=== PATIENT | male | born 1930 | race Caucasian/White ===

== ENCOUNTER 2017-01-19 19:17 | Inpatient (IN) | payer MEDICARE, MEDICAID ==
[~2017-01-19] VITALS: Ht 175.3 cm; Wt 74.0 kg
[2017-01-19 19:35] VITALS: BP 163/115; PULSE 75; RESP 18; TEMP 97.5; O2SAT 97
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
--- NOTE | 2017-01-19 20:02 | RADRPT ---
EXAM DATE/TIME: 01/19/2017 19:54 [facility] COMPARISON: No previous studies available for comparison. INDICATIONS : Short of breath altered mental status MEDICAL HISTORY : None. SURGICAL HISTORY : Pacemaker. ENCOUNTER: Initial ACUITY: 1 day PAIN SCORE: 0/10 LOCATION: Bilateral chest FINDINGS: Cardiomegaly. Clear lungs. Pacer/ICD device from a left subclavian transvenous approach noted. Degene rative changes of the spine. CONCLUSION: No acute disease. Luis Angel Acuña MD on January 19, 2017 at 20:00 Board Certified Radiologist. This report was verified electronically.
[2017-01-19 20:27] LABS: ANION GAP 6 MEQ/L (5-15)
[2017-01-19 20:29] LABS: APTT (PATIENT) 44.1 SEC (24.3-30.1); INTERNATIONAL NORMALIZED RATIO 2.8 RATIO; PROTHROMBIN TIME - PATIENT 32.8 SEC (9.8-11.6)
[2017-01-19 20:29] LABS: AUTOMATED NEUTROPHIL # 4.3 TH/MM3 (1.8-7.7); BASOPHIL # 0.1 TH/MM3 (0-0.2); BASOPHIL % 0.7 % (0.0-2.0); EOSINOPHIL # 0.5 TH/MM3 (0-0.4); EOSINOPHIL % 6.5 % (0.0-4.0); HEMATOCRIT 39.4 % (39.0-51.0); HEMO FLAGS DIFF FINAL; LYMPH % 30.8 % (9.0-44.0); LYMPHOCYTE # 2.4 TH/MM3 (1.0-4.8); MEAN CELL VOLUME 85.3 FL (80.0-100.0); MEAN CORPUSCULAR HEMOGLOBIN 28.2 PG (27.0-34.0); MEAN CORPUSCULAR HGB CONC 33.1 % (32.0-36.0); PLATELET COUNT 135 TH/MM3 (150-450); RED BLOOD COUNT 4.61 MIL/MM3 (4.50-5.90); WHITE BLOOD COUNT 7.7 TH/MM3 (4.0-11.0)
[2017-01-19 20:31] LABS: ALKALINE PHOSPHATASE 143 U/L (45-117); ALT (GPT) 29 U/L (12-78); AST (GOT) 27 U/L (15-37); BICARBONATE 28.1 MEQ/L (21.0-32.0); BLOOD UREA NITROGEN 22 MG/DL (7-18); CHLORIDE 106 MEQ/L (98-107); GLOMERULAR FILTRATION RATE 48 ML/MIN (>89); POTASSIUM 4.4 MEQ/L (3.5-5.1); SODIUM (NA) 140 MEQ/L (136-145); TOTAL BILIRUBIN ADULT 0.3 MG/DL (0.2-1.0)
--- NOTE | 2017-01-19 20:42 | RADRPT ---
EXAM DATE/TIME: 01/19/2017 20:33 [facility] COMPARISON: No previous studies available for comparison. INDICATIONS : Altered mental status. RADIATION DOSE: 39.32 CTDIvol (mGy) MEDICAL HISTORY : Dementia. SURGICAL HISTORY : None. ENCOUNTER: Initial ACUITY: 1 day PAIN SCALE: 0/10 LOCATION: cranial TECHNIQUE: Multiple contiguous axial images were obtained of the head. Using automated exposure control and adj ustment of the mA and/or kV according to patient size, radiation dose was kept as low as reasonably a chievable to obtain optimal diagnostic quality images. FINDINGS: There is atrophy and artery periventricular white matter disease most characteristic of chronic micro vascular ischemic disease. Remote right cerebellar PICA territory infarcts. No signs of acute infarct , hemorrhage, or mass. No fractures. CONCLUSION: No acute disease. Luis Angel Acuña MD on January 19, 2017 at 20:40 Board Certified Radiologist. This report was verified electronically.
[2017-01-19] MEDS ORDERED: VENL75TA PO (21:47)
[2017-01-19] MEDS ORDERED: LISI2.5T3 PO (21:47)
[2017-01-19] MEDS ORDERED: FERR325T PO (21:47)
[2017-01-19] MEDS ORDERED: POTA10LI10 PO (21:47)
[2017-01-19] MEDS ORDERED: ARTI1SOL OP (21:47)
[2017-01-19] MEDS ORDERED: WARF-23 PO (21:47)
[2017-01-19] MEDS ORDERED: AFRI0.052 EACH NARE (21:47)
[2017-01-19] MEDS ORDERED: ALPR0.5T3 PO (21:47)
[2017-01-19] MEDS ORDERED: SENN8.6T81 PO (21:47)
[2017-01-19] MEDS ORDERED: ACET325T PO (21:47)
[2017-01-19] MEDS ORDERED: DONE10TA7 PO (21:47)
[2017-01-19 23:05] VITALS: BP 139/66; PULSE 71; RESP 12; O2SAT 97
[2017-01-19] MEDS ORDERED: cloNIDine HCL 0.1 MG TAB PO PRN (23:15)
[2017-01-19] MEDS ORDERED: ALUMINUM/MAGNESIUM/SIMETH 30 ML CUP PO PRN (23:15)
[2017-01-19] MEDS ORDERED: MELATONIN 5 MG TAB PO PRN (23:15)
[2017-01-19] MEDS ORDERED: diphenhydrAMINE HCL 50 MG/ML VIAL IM PRN (23:15)
[2017-01-19] MEDS ORDERED: MAGNESIUM HYDROXIDE SUSP 30 ML CUP PO PRN (23:15)
[2017-01-19] MEDS ORDERED: HALOPERIDOL 1 MG TAB PO PRN (23:15)
[2017-01-19] MEDS ORDERED: ACETAMINOPHEN 325 MG TAB PO PRN (23:15)
[2017-01-19] MEDS ORDERED: diphenhydrAMINE HCL 25 MG CAP PO PRN (23:15)
[2017-01-19] MEDS ORDERED: HALOPERIDOL LACTATE 5 MG/ML AMP IM PRN (23:15)
[2017-01-20 00:20] VITALS: BP 144/79; PULSE 71; RESP 16; TEMP 97.9; O2SAT 95
[2017-01-20 05:56] VITALS: BP 148/70; PULSE 75; RESP 16; TEMP 98.4
--- NOTE | 2017-01-20 08:41 | EKG ---
Date Performed: 01/19/2017 Time Performed: 23:28:19 PTAGE: 86 years EKG: ELECTRONIC VENTRICULAR PACEMAKER ABNORMAL RHYTHM ECG NO PREVIOUS TRACING DOCTOR: Stuart Langford Interpretating Date/Time 01/20/2017 08:39:32
[2017-01-20] MEDS: FERROUS SULFATE 325 MG (65 MG ELEMENTAL IRON) TAB PO SCH (09:00)
[2017-01-20] MEDS: ARTIFICIAL TEARS OPTH SOLN 15 ML BTL EACH EYE SCH ×2 (09:00→21:00)
[2017-01-20] MEDS: POTASSIUM CHLORIDE 10 MEQ CONTROLLED RELEASE TAB PO SCH (09:00)
[2017-01-20] MEDS: REMOVE OLD PATCH-NICOTINE T-DERMAL SCH (09:00)
[2017-01-20] MEDS: NICOTINE 21 MG/24 HR PATCH T-DERMAL SCH (09:00)
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
[2017-01-20] MEDS: WARFARIN SOD 2 MG TAB PO SCH (16:00)
[2017-01-20] MEDS: WARFARIN SOD 2.5 MG TAB PO SCH (16:00)
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
[2017-01-20] MEDS ORDERED: PILL SPLITTER OTHER PRN (17:15)
[2017-01-20 18:00] VITALS: BP 154/71; PULSE 66; RESP 18; O2SAT 94
[2017-01-20] MEDS: SENNOSIDES 8.6 MG TAB PO SCH (21:11)
[2017-01-20] MEDS: QUEtiapine FUMARATE 25 MG TAB PO SCH (21:12)
[2017-01-20] MEDS: DONEPEZIL HCL 5 MG TAB PO SCH (21:12)
[2017-01-21 05:24] VITALS: BP 196/97; PULSE 72; RESP 18; TEMP 97.5; O2SAT 96
[2017-01-21] MEDS: NICOTINE 21 MG/24 HR PATCH T-DERMAL SCH (09:00)
[2017-01-21] MEDS: ARTIFICIAL TEARS OPTH SOLN 15 ML BTL EACH EYE SCH ×2 (09:00→20:35)
[2017-01-21] MEDS: REMOVE OLD PATCH-NICOTINE T-DERMAL SCH (09:00)
--- NOTE | 2017-01-21 09:20 | HHI.PYPN ---
Subjective Remarks Patient seen and examined with nurse. Chart reviewed. Case discussed with nursing staff who reports that the patient has been in good behavioral control but requires assistance with feeding. On my evaluation today, the patient is in good spirits. However he says that he feels "disgusted with myself. I been in the middle of everything, and all of a sudden I'm all the way out here." It is unclear what he means by this, and it is impossible to again clarification in light of his degree of cognitive impairment, which is ongoing. No SI or HI. No evident side effects from medications. Review of Systems ROS Limitations: Poor Historian Except as stated in HPI: all other systems reviewed are Neg Objective Alert: Yes [place]: Person Mood: Calm Affect: Appropriate Memory Intact: Comment (impaired) Hallucinations: Other (no AVH) Delusions: No Delusion Type: Other (no delusions) Suicidal: Ideation (no SI) Homicidal: Ideation (no HI) Insight/Judgment Poor Remarks No abnormal motor movements noted. Labs Labs reviewed. No new labs. Vitals/IOs Vital Signs Date Time Temp Pulse Resp B/P Pulse Ox O2 Delivery O2 Flow Rate FiO2 01/21/17 05:24 97.5 72 18 196/97 96 01/19/17 19:35 Room Air Intake and Output 01/20/17 01/20/17 01/21/17 08:00 16:00 00:00 Intake Total 960 ml 720 ml Balance 960 ml 720 ml Assessment & Plan Problem List: (1) Dementia ICD Code: F03.90 Assessment & Plan Continue low-dose Seroquel as ordered. Continue other medications and care as ordered. Hospitalist consult input noted and appreciated. Continue to monitor on the inpatient unit. Justification for Cont. Inpt. Impairment in reality construction as a consequence of his dementia. High risk for decompensation in a less restrictive environment. Discharge Planning Possible return to referring facility versus new placement. 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
[2017-01-21] MEDS: FERROUS SULFATE 325 MG (65 MG ELEMENTAL IRON) TAB PO SCH (09:28)
[2017-01-21] MEDS: VENLAFAXINE HCL XR 75 MG CAP PO SCH (09:28)
[2017-01-21] MEDS: POTASSIUM CHLORIDE 10 MEQ CONTROLLED RELEASE TAB PO SCH (09:28)
[2017-01-21] MEDS: QUEtiapine FUMARATE 25 MG TAB PO SCH ×2 (09:30→20:36)
[2017-01-21] MEDS: WARFARIN SOD 2 MG TAB PO SCH (15:58)
[2017-01-21] MEDS: WARFARIN SOD 2.5 MG TAB PO SCH (15:58)
[2017-01-21 16:30] LABS: APTT (PATIENT) 37.2 SEC (24.3-30.1); INTERNATIONAL NORMALIZED RATIO 1.8 RATIO; PROTHROMBIN TIME - PATIENT 20.8 SEC (9.8-11.6)
[2017-01-21 16:36] LABS: ANION GAP 7 MEQ/L (5-15); AST (GOT) 32 U/L (15-37); BICARBONATE 21.4 MEQ/L (21.0-32.0); BLOOD UREA NITROGEN 24 MG/DL (7-18); CHLORIDE 110 MEQ/L (98-107); GLOMERULAR FILTRATION RATE 44 ML/MIN (>89); POTASSIUM 5.1 MEQ/L (3.5-5.1); SODIUM (NA) 138 MEQ/L (136-145)
[2017-01-21 16:45] LABS: ALKALINE PHOSPHATASE 139 U/L (45-117); ALT (GPT) 29 U/L (12-78); HDL CHOLESTEROL 46.5 MG/DL (40.0-60.0); LDL CHOLESTEROL 94 MG/DL (0-99); TOTAL BILIRUBIN ADULT 0.4 MG/DL (0.2-1.0)
[2017-01-21 18:00] VITALS: BP 109/56; PULSE 71; RESP 16; TEMP 98.1; O2SAT 98
[2017-01-21] MEDS: SENNOSIDES 8.6 MG TAB PO SCH (20:35)
[2017-01-21] MEDS: DONEPEZIL HCL 5 MG TAB PO SCH (20:36)
[2017-01-21 22:25] LABS: HEMOGLOBIN A1a 1.1 %; HEMOGLOBIN Ao 84.7 %; HEMOGLOBIN LA1C 2.3 %; HEMOGLOBIN P3 5.3 %
[2017-01-22 06:20] VITALS: BP 160/78; PULSE 69; RESP 18; TEMP 96.3; O2SAT 100
[2017-01-22] MEDS: VENLAFAXINE HCL XR 75 MG CAP PO SCH (08:50)
[2017-01-22] MEDS: FERROUS SULFATE 325 MG (65 MG ELEMENTAL IRON) TAB PO SCH (08:50)
[2017-01-22] MEDS: POTASSIUM CHLORIDE 10 MEQ CONTROLLED RELEASE TAB PO SCH (08:51)
[2017-01-22] MEDS: QUEtiapine FUMARATE 25 MG TAB PO SCH ×2 (08:52→20:58)
[2017-01-22] MEDS: NICOTINE 21 MG/24 HR PATCH T-DERMAL SCH (08:52)
[2017-01-22 08:55] VITALS: BP 160/82; PULSE 66; RESP 16
[2017-01-22] MEDS: ARTIFICIAL TEARS OPTH SOLN 15 ML BTL EACH EYE SCH ×2 (08:57→20:59)
[2017-01-22] MEDS: REMOVE OLD PATCH-NICOTINE T-DERMAL SCH (08:58)
[2017-01-22 09:13] LABS: BICARBONATE 26.9 MEQ/L (21.0-32.0); POTASSIUM 4.3 MEQ/L (3.5-5.1)
[2017-01-22 09:53] LABS: CALCIUM-PROTEIN CORRECTED 11.6 MG/DL (8.5-10.1)
--- NOTE | 2017-01-22 11:52 | HHI.PYPN ---
Subjective Remarks This is a progress note for January 21. Patient is seen for second opinion regarding current civil commitment status. Patient obviously disoriented and confused and unable to care for self. Review of Systems ROS Limitations: Clinical Condition Objective Alert: Yes [place]: Person Mood: Calm Affect: Appropriate Memory Intact: Comment (impaired) Hallucinations: Other (no AVH) Delusions: No Delusion Type: Other (no delusions) Suicidal: Ideation (no SI) Homicidal: Ideation (no HI) Insight/Judgment Impaired Labs Test 01/21/17 01/22/17 15:13 07:53 Prothrombin Time 20.8 SEC Prothromb Time International 1.8 RATIO Ratio Activated Partial 37.2 SEC Thromboplast Time Sodium Level 138 MEQ/L 141 MEQ/L Potassium Level 5.1 MEQ/L 4.3 MEQ/L Chloride Level 110 MEQ/L 108 MEQ/L Carbon Dioxide Level 21.4 MEQ/L 26.9 MEQ/L Anion Gap 7 MEQ/L 6 MEQ/L Blood Urea Nitrogen 24 MG/DL 28 MG/DL Creatinine 1.50 MG/DL 1.38 MG/DL Estimat Glomerular Filtration 44 ML/MIN 49 ML/MIN Rate Random Glucose 88 MG/DL 84 MG/DL Hemoglobin A1c 5.6 % Calcium Level 11.5 MG/DL 11.9 MG/DL Total Bilirubin 0.4 MG/DL Aspartate Amino Transf 32 U/L (AST/SGOT) Alanine Aminotransferase 29 U/L (ALT/SGPT) Alkaline Phosphatase 139 U/L Total Protein 7.5 GM/DL 7.6 GM/DL Albumin 3.0 GM/DL Triglycerides Level 91 MG/DL Cholesterol Level 159 MG/DL LDL Cholesterol 94 MG/DL HDL Cholesterol 46.5 MG/DL Cholesterol/HDL Ratio 3.41 RATIO Thyroid Stimulating Hormone 1.070 uIU/ML 3rd Gen Protein Corrected Calcium 11.6 MG/DL Vitals/IOs Vital Signs Date Time Temp Pulse Resp B/P Pulse Ox O2 Delivery O2 Flow Rate FiO2 01/22/17 06:20 96.3 69 18 160/78 100 01/19/17 19:35 Room Air Intake and Output 01/21/17 01/21/17 01/22/17 08:00 16:00 00:00 Intake Total 0 ml 960 ml 240 ml Balance 0 ml 960 ml 240 ml Assessment & Plan Problem List: (1) Dementia ICD Code: F03.90 Assessment & Plan Estimated LOS: days this physician agrees with need to civilly committed patient. Justification for Cont. Inpt. Unable to care for self. 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
--- NOTE | 2017-01-22 15:06 | HHI.PYPN ---
Subjective Remarks Patient seen and examined. Chart reviewed. Case discussed with nursing staff. Patient has remained in good behavioral control and has required no Haldol in several days. On my examination today, the patient is calm and lying in bed. He is looking forward to seeing his this evening. He has no physical complaints. He denies side effects from medications. He remains at his confused baseline. Review of Systems ROS Limitations: Poor Historian Except as stated in HPI: all other systems reviewed are Neg (cognitive impairment limits ROS) Objective Alert: Yes [place]: Person Mood: Calm Affect: Blunted Memory Intact: Comment (remains impaired) Hallucinations: Other (no AVH) Delusions: No Delusion Type: Other (no delusional material) Suicidal: Ideation (no SI) Homicidal: Ideation (no HI) Insight/Judgment Poor Remarks No hand tremor, no cogwheeling, no dystonias, no dyskinesias, no other motoric abnormalities noted. Grooming and hygiene maintained with staff assistance. Labs Test 01/21/17 01/22/17 15:13 07:53 Prothrombin Time 20.8 SEC Prothromb Time International 1.8 RATIO Ratio Activated Partial 37.2 SEC Thromboplast Time Sodium Level 138 MEQ/L 141 MEQ/L Potassium Level 5.1 MEQ/L 4.3 MEQ/L Chloride Level 110 MEQ/L 108 MEQ/L Carbon Dioxide Level 21.4 MEQ/L 26.9 MEQ/L Anion Gap 7 MEQ/L 6 MEQ/L Blood Urea Nitrogen 24 MG/DL 28 MG/DL Creatinine 1.50 MG/DL 1.38 MG/DL Estimat Glomerular Filtration 44 ML/MIN 49 ML/MIN Rate Random Glucose 88 MG/DL 84 MG/DL Hemoglobin A1c 5.6 % Calcium Level 11.5 MG/DL 11.9 MG/DL Total Bilirubin 0.4 MG/DL Aspartate Amino Transf 32 U/L (AST/SGOT) Alanine Aminotransferase 29 U/L (ALT/SGPT) Alkaline Phosphatase 139 U/L Total Protein 7.5 GM/DL 7.6 GM/DL Albumin 3.0 GM/DL Triglycerides Level 91 MG/DL Cholesterol Level 159 MG/DL LDL Cholesterol 94 MG/DL HDL Cholesterol 46.5 MG/DL Cholesterol/HDL Ratio 3.41 RATIO Thyroid Stimulating Hormone 1.070 uIU/ML 3rd Gen Protein Corrected Calcium 11.6 MG/DL Labs reviewed. Hospitalist is working up patient's hypercalcemia. Vitals/IOs Vital Signs Date Time Temp Pulse Resp B/P Pulse Ox O2 Delivery O2 Flow Rate FiO2 01/22/17 08:55 66 16 160/82 01/22/17 06:20 96.3 100 01/19/17 19:35 Room Air Intake and Output 01/21/17 01/21/17 01/22/17 08:00 16:00 00:00 Intake Total 0 ml 960 ml 240 ml Balance 0 ml 960 ml 240 ml Assessment & Plan Problem List: (1) Dementia ICD Code: F03.90 Assessment & Plan Continue Seroquel as ordered. Continue other psychotropics as ordered. Hospitalist consult input noted and appreciated. Continue to monitor on the inpatient unit. Continue other medications and care as ordered. Justification for Cont. Inpt. High risk for decompensation in a less restrictive environment. Discharge Planning Patient requires placement. Existing facility is unfortunately apparently unwilling to accept the patient back. 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
[2017-01-22] MEDS: WARFARIN SOD 2 MG TAB PO SCH (16:00)
[2017-01-22] MEDS: WARFARIN SOD 2.5 MG TAB PO SCH (16:00)
[2017-01-22 18:41] VITALS: BP 140/60; PULSE 71; RESP 17; TEMP 98.5; O2SAT 98
[2017-01-22] MEDS: SENNOSIDES 8.6 MG TAB PO SCH (20:58)
[2017-01-22] MEDS: DONEPEZIL HCL 5 MG TAB PO SCH (20:58)
[2017-01-23 06:12] VITALS: BP 131/63; PULSE 70; RESP 16; TEMP 98.1; O2SAT 100
[2017-01-23] MEDS: SODIUM CHLOR 0.9% 1000 ML INJ 1,000 ML IV SCH ×2 (08:00→22:08)
[2017-01-23 08:54] LABS: BICARBONATE 26.3 MEQ/L (21.0-32.0); POTASSIUM 4.4 MEQ/L (3.5-5.1)
[2017-01-23] MEDS: ARTIFICIAL TEARS OPTH SOLN 15 ML BTL EACH EYE SCH ×2 (09:00→21:00)
[2017-01-23] MEDS: VENLAFAXINE HCL XR 75 MG CAP PO SCH (09:00)
[2017-01-23] MEDS: NICOTINE 21 MG/24 HR PATCH T-DERMAL SCH (09:00)
[2017-01-23] MEDS: REMOVE OLD PATCH-NICOTINE T-DERMAL SCH (09:00)
[2017-01-23] MEDS: POTASSIUM CHLORIDE 10 MEQ CONTROLLED RELEASE TAB PO SCH (09:13)
[2017-01-23] MEDS: QUEtiapine FUMARATE 25 MG TAB PO SCH ×2 (09:13→21:50)
[2017-01-23] MEDS: FERROUS SULFATE 325 MG (65 MG ELEMENTAL IRON) TAB PO SCH (09:13)
--- NOTE | 2017-01-23 14:44 | HHI.PYPN ---
Subjective Remarks Patient seen and examined. Chart reviewed. Case discussed with nursing staff. Hospitalist would apparently like to transfer the patient to the floor for IV hydration; we will plan to move to [facility] psych. Patient no behavioral problem per nursing staff. On my examination today, the patient is sitting calmly in the day area receiving IV fluids prior to transfer to the med psych unit. He remains at his confused baseline. He is hopeful that he will get to see his soon. I explained the plan for the transfer to the med psych unit and he says "I got nothing to lose." No evident side effects from medications. Review of Systems ROS Limitations: Poor Historian Except as stated in HPI: all other systems reviewed are Neg Objective Alert: Yes [place]: Person Mood: Calm Affect: Blunted (remains blunted tending towards flat) Memory Intact: Comment (impaired) Hallucinations: Other (no AVH) Delusions: No Delusion Type: Other (no delusions) Suicidal: Ideation (no SI voiced) Homicidal: Ideation (no HI voiced) Insight/Judgment Poor Remarks No motor abnormalities noted. Labs Test 01/23/17 07:20 Sodium Level 142 MEQ/L Potassium Level 4.4 MEQ/L Chloride Level 108 MEQ/L Carbon Dioxide Level 26.3 MEQ/L Anion Gap 8 MEQ/L Blood Urea Nitrogen 28 MG/DL Creatinine 1.37 MG/DL Estimat Glomerular Filtration 49 ML/MIN Rate Random Glucose 75 MG/DL Calcium Level 11.3 MG/DL Parathyroid Hormone (Intact) 299.5 PG/ML Labs reviewed. Vitals/IOs Vital Signs Date Time Temp Pulse Resp B/P Pulse Ox O2 Delivery O2 Flow Rate FiO2 01/23/17 06:12 98.1 70 16 131/63 100 01/19/17 19:35 Room Air Intake and Output 01/22/17 01/22/17 01/23/17 08:00 16:00 00:00 Intake Total 0 ml 480 ml Balance 0 ml 480 ml Assessment & Plan Problem List: (1) Dementia ICD Code: F03.90 Assessment & Plan Transfer to med psych unit for further IV hydration. Case d/w Dr. Schrader. Hospitalist in home sales consultant input appreciated. Continue current psychotropics as ordered. Continue other medications and care as ordered. Justification for Cont. Inpt. Complicating condition. High risk for decompensation in a less restrictive environment. 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
--- NOTE | 2017-01-23 16:40 | HHI.PR ---
Subjective Remarks Hyponatremia increasing. PTH is ordered and shows gross positivity. Parathyroid scan ordered. Patient has no complaints of cramps, palpitations, chest pain, or dizziness. Objective Vital Signs Date Time Temp Pulse Resp B/P Pulse Ox O2 Delivery O2 Flow Rate FiO2 01/23/17 06:12 98.1 70 16 131/63 100 01/22/17 18:41 98.5 71 17 140/60 98 I/O 01/22/17 01/22/17 01/22/17 01/23/17 01/23/17 01/23/17 07:00 15:00 23:00 07:00 15:00 23:00 Intake Total 0 ml 480 ml 0 ml Balance 0 ml 480 ml 0 ml Intake Oral 0 ml 480 ml 0 ml # Voids 1 2 Result Diagram: 01/19/17194501/23/17 0720 Objective Remarks GENERAL: NAD, A&Ox1 SKIN: Warm and dry. HEAD: Normocephalic. EYES: No scleral icterus. No injection or drainage. NECK: Supple, trachea midline. No JVD or lymphadenopathy. CARDIOVASCULAR: Regular rate and rhythm without murmurs, gallops, or rubs. RESPIRATORY: Breath sounds equal bilaterally. No accessory muscle use. GASTROINTESTINAL: Abdomen soft, non-tender, nondistended. MUSCULOSKELETAL: No cyanosis, or edema. BACK: Nontender without obvious deformity. No CVA tenderness. Medications and IVs Administered Medications Medications (Trade) Dose Ordered Sig/Kasia Route PRN Reason Start Time Stop Time Status Last Admin Dose Admin Ferrous Sulfate (Ferrous Sulfate) 325 mg DAILY PO 01/20/17 09:00 01/23/17 09:13 Sennosides (Senokot) 8.6 mg HS PO 01/20/17 21:00 01/22/17 20:58 Warfarin Sodium (Coumadin) 2 mg DAILY@1600 PO 01/20/17 16:00 01/22/17 16:00 Artificial Tears (Tears Naturale Opth Soln) 1 drop BID EACH EYE 01/20/17 09:00 01/22/17 20:59 Potassium Chloride (KCl) 10 meq DAILY PO 01/20/17 09:00 01/23/17 09:13 Miscellaneous Information 1 DAILY T-DERMAL 01/20/17 09:00 01/21/17 09:00 Haloperidol (Haldol) 1 mg Q8H PRN PO ANXIETY/AGITATION 01/19/17 23:15 01/20/17 12:41 Diphenhydramine HCl (Benadryl) 25 mg Q6H PRN PO EXTRA PYRAMIDAL SYMPTOMS 01/19/17 23:15 01/20/17 21:11 Clonidine (Catapres) 0.1 mg Q8H PRN PO SBP>180 or DBP>100 01/19/17 23:15 01/21/17 05:45 Warfarin Sodium (Coumadin) 2.5 mg DAILY@1600 PO 01/20/17 16:00 01/22/17 16:00 Donepezil HCl (Aricept) 10 mg HS PO 01/20/17 21:00 01/22/17 20:58 Venlafaxine HCl (Effexor Xr) 75 mg DAILY PO 01/21/17 09:00 01/23/17 09:00 Quetiapine Fumarate 12.5 mg 12.5 mg BID PO 01/20/17 21:00 01/23/17 09:13 Sodium Chloride (NS 1000 ml Inj) 1,000 ml @ 100 mls/hr Q10H IV 01/23/17 08:00 01/23/17 08:00 A/P Problem List: (1) Hypercalcemia ICD Code: E83.52 (2) Hyperparathyroidism ICD Code: E21.3 (3) Dementia ICD Code: F03.90 (4) HTN (hypertension) ICD Code: I10 (5) A-fib ICD Code: I48.91 (6) CAD (coronary artery disease) ICD Code: I25.10 (7) Vascular dementia ICD Code: F01.50 Assessment and Plan A/P: Hyperparathyroidism Hypercalcemia PTH evaluation is elevated Pending Parathyroid Scan Follow clinically for neurologic changes (cramps, seizures, vertigo, syncope) IV Hydration with NS Follow calcium levels If parathyroid scan shows evidence of focal hyperactivity a surgeon will be consulted Problem Qualifiers (1) Dementia: Qualified Code: G30.8 - 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
[2017-01-23 20:01] VITALS: BP 128/58; PULSE 70; RESP 16; TEMP 98.6; O2SAT 95
[2017-01-23] MEDS: WARFARIN SOD 2.5 MG TAB PO SCH (21:49)
[2017-01-23] MEDS: SENNOSIDES 8.6 MG TAB PO SCH (21:50)
[2017-01-23] MEDS: DONEPEZIL HCL 5 MG TAB PO SCH (21:50)
[2017-01-23] MEDS: WARFARIN SOD 2 MG TAB PO SCH (21:50)
[2017-01-24] MEDS: SODIUM CHLOR 0.9% 1000 ML INJ 1,000 ML IV SCH (04:00)
[2017-01-24 06:26] VITALS: BP 149/71; PULSE 71; RESP 16; TEMP 97.9; O2SAT 96
[2017-01-24] MEDS: NICOTINE 21 MG/24 HR PATCH T-DERMAL SCH (09:00)
[2017-01-24] MEDS: REMOVE OLD PATCH-NICOTINE T-DERMAL SCH (09:00)
[2017-01-24] MEDS: ARTIFICIAL TEARS OPTH SOLN 15 ML BTL EACH EYE SCH ×2 (09:00→21:00)
[2017-01-24] MEDS: QUEtiapine FUMARATE 25 MG TAB PO SCH ×2 (09:54→21:00)
[2017-01-24] MEDS: POTASSIUM CHLORIDE 10 MEQ CONTROLLED RELEASE TAB PO SCH (09:55)
[2017-01-24] MEDS: FERROUS SULFATE 325 MG (65 MG ELEMENTAL IRON) TAB PO SCH (09:55)
[2017-01-24] MEDS: VENLAFAXINE HCL XR 75 MG CAP PO SCH (09:55)
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
--- NOTE | 2017-01-24 12:51 | HHI.PYPN ---
Subjective Remarks On psychiatric evaluation today patient is found calm and cooperative, pleasant , he is confused, disoriented, he doesn't know where he is, he doesn't know the date, however, he reports good mood, good appetite, he says that he is enjoying his breakfast, he denies distress, he denies any pain, he denies suicidal or homicidal ideation, he denies visual and auditory hallucinations. No agitation , no aggressive behavior has been reported, patient has been compliant with medication.. Review of Systems Other No somatic complaints Objective Alert: Yes [place]: Person Mood: Calm Affect: Blunted (remains blunted tending towards flat) Memory Intact: Comment (impaired) Hallucinations: Other (no AVH) Delusions: No Delusion Type: Other (no delusions) Suicidal: Ideation (no SI voiced) Homicidal: Ideation (no HI voiced) Insight/Judgment Poor Vitals/IOs Vital Signs Date Time Temp Pulse Resp B/P Pulse Ox O2 Delivery O2 Flow Rate FiO2 01/24/17 06:26 97.9 71 16 149/71 96 Intake and Output 01/23/17 01/23/17 01/24/17 08:00 16:00 00:00 Intake Total 0 ml 980 ml Balance 0 ml 980 ml Assessment & Plan Problem List: (1) Dementia ICD Code: F03.90 Assessment & Plan Estimated LOS: days Justification for Cont. Inpt. Patient will continue psychiatric hospitalization for stabilization of mood and behavior Request HC Surrog/Guard Advoc?: Yes Problem Qualifiers (1) Dementia: Qualified Code: G30.8 - Alzheimer's disease of other onset without behavioral disturbance Jaxon Schrader MD Jan 24, 2017 12:51
[2017-01-24 15:35] LABS: BICARBONATE 22.5 MEQ/L (21.0-32.0); POTASSIUM 4.9 MEQ/L (3.5-5.1)
[2017-01-24] MEDS: WARFARIN SOD 2 MG TAB PO SCH (16:00)
[2017-01-24] MEDS: WARFARIN SOD 2.5 MG TAB PO SCH (16:00)
[2017-01-24 17:11] VITALS: BP 121/70; PULSE 74; RESP 20; TEMP 97.7; O2SAT 95
[2017-01-24] MEDS: SENNOSIDES 8.6 MG TAB PO SCH (21:00)
[2017-01-24] MEDS: DONEPEZIL HCL 5 MG TAB PO SCH (21:00)
[2017-01-25 05:25] LABS: MEAN CELL VOLUME 85.5 FL (80.0-100.0); MEAN CORPUSCULAR HEMOGLOBIN 28.2 PG (27.0-34.0); PLATELET COUNT 117 TH/MM3 (150-450); RED BLOOD COUNT 4.22 MIL/MM3 (4.50-5.90); RED CELL DISTRIBUTION WIDTH 15.1 % (11.6-17.2); REVIEW FLAG FINAL
[2017-01-25 05:42] LABS: BICARBONATE 25.4 MEQ/L (21.0-32.0); POTASSIUM 4.5 MEQ/L (3.5-5.1)
[2017-01-25 06:57] VITALS: BP 151/70; PULSE 70; RESP 16; TEMP 97.7; O2SAT 99
[2017-01-25] MEDS: VENLAFAXINE HCL XR 75 MG CAP PO SCH (08:39)
[2017-01-25] MEDS: POTASSIUM CHLORIDE 10 MEQ CONTROLLED RELEASE TAB PO SCH (08:39)
[2017-01-25] MEDS: ARTIFICIAL TEARS OPTH SOLN 15 ML BTL EACH EYE SCH ×2 (08:39→20:39)
[2017-01-25] MEDS: FERROUS SULFATE 325 MG (65 MG ELEMENTAL IRON) TAB PO SCH (08:39)
[2017-01-25] MEDS: QUEtiapine FUMARATE 25 MG TAB PO SCH ×2 (08:39→20:40)
[2017-01-25] MEDS: NICOTINE 21 MG/24 HR PATCH T-DERMAL SCH (09:00)
[2017-01-25] MEDS: REMOVE OLD PATCH-NICOTINE T-DERMAL SCH (09:00)
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
--- NOTE | 2017-01-25 14:12 | HHI.PYPN ---
Subjective Remarks Patient seen for psychiatric reevaluation today patient continues to be pleasantly confused and demented, no episodes of agitation or aggressive behavior in the unit, he reports good mood, he says that he is happy, reports good sleep, good appetite. Patient is compliant with medications. Review of Systems Other No somatic complaints Objective Alert: Yes [place]: Person Mood: Calm Affect: Blunted (remains blunted tending towards flat) Memory Intact: Comment (impaired) Hallucinations: Other (no AVH) Delusions: No Delusion Type: Other (no delusions) Suicidal: Ideation (no SI voiced) Homicidal: Ideation (no HI voiced) Insight/Judgment poor Labs Test 01/24/17 01/25/17 01/25/17 14:37 04:35 08:18 Sodium Level 138 MEQ/L 140 MEQ/L Potassium Level 4.9 MEQ/L 4.5 MEQ/L Chloride Level 111 MEQ/L 110 MEQ/L Carbon Dioxide Level 22.5 MEQ/L 25.4 MEQ/L Anion Gap 5 MEQ/L 5 MEQ/L Blood Urea Nitrogen 25 MG/DL 25 MG/DL Creatinine 1.16 MG/DL 1.15 MG/DL Estimat Glomerular Filtration 60 ML/MIN 60 ML/MIN Rate Random Glucose 102 MG/DL 80 MG/DL Calcium Level 10.8 MG/DL 10.8 MG/DL White Blood Count 6.0 TH/MM3 Red Blood Count 4.22 MIL/MM3 Hemoglobin 11.9 GM/DL Hematocrit 36.0 % Mean Corpuscular Volume 85.5 FL Mean Corpuscular Hemoglobin 28.2 PG Mean Corpuscular Hemoglobin 33.0 % Concent Red Cell Distribution Width 15.1 % Platelet Count 117 TH/MM3 Mean Platelet Volume 10.9 FL 25-Hydroxy Vitamin D Total 12.5 ng/ML Vitals/IOs Vital Signs Date Time Temp Pulse Resp B/P Pulse Ox O2 Delivery O2 Flow Rate FiO2 01/25/17 06:57 97.7 70 16 151/70 99 Intake and Output 01/24/17 01/24/17 01/25/17 08:00 16:00 00:00 Intake Total 640 ml 360 ml 880 ml Output Total 450 ml Balance 640 ml -90 ml 880 ml Assessment & Plan Problem List: (1) Dementia ICD Code: F03.90 Assessment & Plan Estimated LOS: days Justification for Cont. Inpt. Patient will continue psychiatric hospitalization for stabilization and safety Request HC Surrog/Guard Advoc?: Yes Problem Qualifiers (1) Dementia: Qualified Code: G30.8 - Alzheimer's disease of other onset without behavioral disturbance Jaxon Schrader MD Jan 25, 2017 14:12
[2017-01-25 15:54] LABS: INTERNATIONAL NORMALIZED RATIO 3.2 RATIO; PROTHROMBIN TIME - PATIENT 36.8 SEC (9.8-11.6)
[2017-01-25] MEDS: WARFARIN SOD 2 MG TAB PO SCH (16:29)
[2017-01-25] MEDS: WARFARIN SOD 2.5 MG TAB PO SCH (16:30)
[2017-01-25 19:38] VITALS: BP 147/66; PULSE 70; RESP 16; TEMP 97.6; O2SAT 96
[2017-01-25] MEDS: SENNOSIDES 8.6 MG TAB PO SCH (20:39)
[2017-01-25] MEDS: DONEPEZIL HCL 5 MG TAB PO SCH (20:39)
[2017-01-26 06:20] VITALS: BP 165/78; PULSE 72; RESP 16; TEMP 97.1; O2SAT 96
[2017-01-26] MEDS: POTASSIUM CHLORIDE 10 MEQ CONTROLLED RELEASE TAB PO SCH (08:57)
[2017-01-26] MEDS: ARTIFICIAL TEARS OPTH SOLN 15 ML BTL EACH EYE SCH ×2 (08:58→20:37)
[2017-01-26] MEDS: VENLAFAXINE HCL XR 75 MG CAP PO SCH (08:58)
[2017-01-26] MEDS: QUEtiapine FUMARATE 25 MG TAB PO SCH ×2 (08:58→20:37)
[2017-01-26] MEDS: CHOLECALCIFEROL (VIT D3) 1000 UNIT TAB PO SCH (08:58)
[2017-01-26] MEDS: FERROUS SULFATE 325 MG (65 MG ELEMENTAL IRON) TAB PO SCH (08:58)
[2017-01-26] MEDS: REMOVE OLD PATCH-NICOTINE T-DERMAL SCH (09:00)
[2017-01-26] MEDS: NICOTINE 21 MG/24 HR PATCH T-DERMAL SCH (09:00)
--- NOTE | 2017-01-26 14:25 | HHI.PYPN ---
Subjective Remarks Patient was seen today for psychiatric reevaluation, patient was eating his lunch, he seems to be enjoying the food, he reports good mood, he is pleasantly confused, he doesn't know where he is, he doesn't know the date, but he does say that he loves bananas with one in his hands. Patient denies depressive symptoms, he denies anxiety, he denies suicidal and homicidal ideation, he denies visual and auditory hallucinations. No agitation, no aggressive behavior , hostility has been reported, she is fully compliant with medications. Review of Systems Constitutional: DENIES: Diaphoretic episodes, Fatigue, Fever, Weight gain, Weight loss, Chills, Dizziness, Change in appetite, Night Sweats Endocrine: DENIES: Heat/cold intolerance, Polydipsia, Polyuria, Polyphagia Eyes: DENIES: Blurred vision, Diplopia, Eye inflammation, Eye pain, Vision loss , Photosensitivity, Double Vision Ears, nose, mouth, throat: DENIES: Tinnitus, Hearing loss, Vertigo, Nasal discharge, Oral lesions, Throat pain, Hoarseness, Ear Pain, Running Nose, Epistaxis, Sinus Pain, Toothache, Odynophagia Respiratory: DENIES: Apneas, Cough, Snoring, Wheezing, Hemoptysis, Sputum production, Shortness of breath Cardiovascular: DENIES: Chest pain, Palpitations, Syncope, Dyspnea on Exertion , PND, Lower Extremity Edema, Orthopnea, Claudication Gastrointestinal: DENIES: Abdominal pain, Black stools, Bloody stools, Constipation, Diarrhea, Nausea, Vomiting, Difficulty Swallowing, Anorexia Genitourinary: DENIES: Sexual dysfunction, Urinary frequency, Urinary incontinence, Urgency, Hematuria, Dysuria, Nocturia, Penile Discharge, Testicular Pain, Testicular Swelling Musculoskeletal: DENIES: Joint pain, Muscle aches, Stiffness, Joint Swelling, Back pain, Neck pain Integumentary: DENIES: Abnormal pigmentation, Nail changes, Pruritus, Rash Neurologic: DENIES: Abnormal gait, Headache, Localized weakness, Paresthesias, Seizures, Speech Problems, Tremor, Poor Balance Objective Alert: Yes [place]: Person Mood: Calm Affect: Blunted (remains blunted tending towards flat) Memory Intact: Comment (impaired) Hallucinations: Other (no AVH) Delusions: No Delusion Type: Other (no delusions) Suicidal: Ideation (no SI voiced) Homicidal: Ideation (no HI voiced) Insight/Judgment Fair Labs Test 01/25/17 15:06 Prothrombin Time 36.8 SEC Prothromb Time International 3.2 RATIO Ratio Vitals/IOs Vital Signs Date Time Temp Pulse Resp B/P Pulse Ox O2 Delivery O2 Flow Rate FiO2 01/26/17 06:20 97.1 72 16 165/78 96 Intake and Output 01/25/17 01/25/17 01/26/17 08:00 16:00 00:00 Intake Total 360 ml 600 ml Balance 360 ml 600 ml Assessment & Plan Problem List: (1) Dementia ICD Code: F03.90 Assessment & Plan Estimated LOS: days Justification for Cont. Inpt. Patient is to continue psychiatric hospitalization for stabilization of behavior , mood and safety. Request HC Surrog/Guard Advoc?: Yes Problem Qualifiers (1) Dementia: Qualified Code: G30.8 - Alzheimer's disease of other onset without behavioral disturbance Jaxon Schrader MD January 26, 2017 14:25
[2017-01-26] MEDS: WARFARIN SOD 2 MG TAB PO SCH (16:00)
[2017-01-26] MEDS: WARFARIN SOD 2.5 MG TAB PO SCH (16:00)
--- NOTE | 2017-01-26 16:46 | RADRPT ---
EXAM DATE/TIME: 01/26/2017 11:43 [place] COMPARISON: No previous studies available for comparison. INDICATIONS : Hypercalcemia. DOSE: 20.4 mCi Tc99m Sestamibi IV 9.5 mCi TcO4 Tc99m Pertechnetate IV IMAGING: SPECT/CT imaging with fusion was performed. RADIATION DOSE: 11.16 CTDIvol (mGy) Large Body Habitus MEDICAL HISTORY : Dementia. Coronary artery disease. SURGICAL HISTORY : None. ENCOUNTER: Subsequent ACUITY: 1 week PAIN SCALE: 0/10 LOCATION: TECHNIQUE: Following the injection of isotope as prescribed above planar views of neck in anterior and both obli que projections were performed. Scan of the neck and chest and delayed views in anterior and both ob lique projections was then performed. Technetium pertechnetate was then injected and an anterior lizz bert view of the neck was also obtained. Attenuation-corrected and non-corrected datasets were review ed. FINDINGS: There is size asymmetry and activity asymmetry involving the thyroid with significantly greater uptak e present in the right lobe than within the left. There is minimally asymmetric washout with some gre ater degree of diffuse retention in the right lobe by comparison to the right which is nonspecific. T here is no ectopic activity elsewhere in the visualized neck or chest. CONCLUSION: Nonlocalizing scan Bacilio Hill MD on January 26, 2017 at 16:36 Board Certified Radiologist. This report was verified electronically.
[2017-01-26] MEDS: SENNOSIDES 8.6 MG TAB PO SCH (20:36)
[2017-01-26] MEDS: DONEPEZIL HCL 5 MG TAB PO SCH (20:37)
[2017-01-26 22:55] VITALS: BP 115/55; PULSE 70; RESP 18; TEMP 97.9; O2SAT 98
[2017-01-27 05:32] VITALS: BP 113/60; PULSE 70; RESP 16; TEMP 98; O2SAT 98
[2017-01-27] MEDS: REMOVE OLD PATCH-NICOTINE T-DERMAL SCH (09:00)
[2017-01-27] MEDS: POTASSIUM CHLORIDE 10 MEQ CONTROLLED RELEASE TAB PO SCH (09:00)
[2017-01-27] MEDS: ARTIFICIAL TEARS OPTH SOLN 15 ML BTL EACH EYE SCH ×2 (09:00→21:00)
[2017-01-27] MEDS: NICOTINE 21 MG/24 HR PATCH T-DERMAL SCH (09:00)
[2017-01-27] MEDS: VENLAFAXINE HCL XR 75 MG CAP PO SCH (09:48)
[2017-01-27] MEDS: FERROUS SULFATE 325 MG (65 MG ELEMENTAL IRON) TAB PO SCH (09:48)
[2017-01-27] MEDS: QUEtiapine FUMARATE 25 MG TAB PO SCH ×2 (09:48→21:17)
[2017-01-27] MEDS: CHOLECALCIFEROL (VIT D3) 1000 UNIT TAB PO SCH (09:48)
--- NOTE | 2017-01-27 13:40 | HHI.PYPN ---
Subjective Remarks Patient seen for psychiatric evaluation, he is alert, in a good mood and spirits , he is pleasantly confused, disoriented in time and place. However he says that he is happy. He denies suicidal or homicidal ideation, he denies visual and auditory hallucinations. Patient has been compliant with his medication, no aggressive behavior or agitation reported. Review of Systems Other No somatic complaints Objective Alert: Yes [place]: Person Mood: Calm Affect: Blunted (remains blunted tending towards flat) Memory Intact: Comment (impaired) Hallucinations: Other (no AVH) Delusions: No Delusion Type: Other (no delusions) Suicidal: Ideation (no SI voiced) Homicidal: Ideation (no HI voiced) Insight/Judgment Poor Vitals/IOs Vital Signs Date Time Temp Pulse Resp B/P Pulse Ox O2 Delivery O2 Flow Rate FiO2 01/27/17 05:32 98.0 70 16 113/60 98 Intake and Output 01/26/17 01/26/17 01/27/17 08:00 16:00 00:00 Intake Total 360 ml 1160 ml Balance 360 ml 1160 ml Assessment & Plan Problem List: (1) Dementia ICD Code: F03.90 Assessment & Plan Estimated LOS: days Justification for Cont. Inpt. She has a high risk to decompensate at a lower level of care. Request HC Surrog/Guard Advoc?: Yes Problem Qualifiers (1) Dementia: Qualified Code: G30.8 - Alzheimer's disease of other onset without behavioral disturbance Jaxon Schrader MD January 27, 2017 13:40
[2017-01-27 17:57] LABS: INTERNATIONAL NORMALIZED RATIO 3.6 RATIO; PROTHROMBIN TIME - PATIENT 42.2 SEC (9.8-11.6)
[2017-01-27 18:04] VITALS: BP 113/80; PULSE 72; RESP 16; TEMP 98; O2SAT 98
[2017-01-27] MEDS: SENNOSIDES 8.6 MG TAB PO SCH (21:00)
[2017-01-27] MEDS: DONEPEZIL HCL 5 MG TAB PO SCH (21:16)
[2017-01-28 05:46] VITALS: BP 136/66; PULSE 71; RESP 16; TEMP 98.1; O2SAT 99
[2017-01-28 07:31] LABS: INTERNATIONAL NORMALIZED RATIO 3.2 RATIO; PROTHROMBIN TIME - PATIENT 37.4 SEC (9.8-11.6)
[2017-01-28] MEDS: NICOTINE 21 MG/24 HR PATCH T-DERMAL SCH (09:00)
[2017-01-28] MEDS: REMOVE OLD PATCH-NICOTINE T-DERMAL SCH (09:00)
[2017-01-28] MEDS: ARTIFICIAL TEARS OPTH SOLN 15 ML BTL EACH EYE SCH ×2 (09:00→21:00)
[2017-01-28] MEDS: FERROUS SULFATE 325 MG (65 MG ELEMENTAL IRON) TAB PO SCH (09:02)
[2017-01-28] MEDS: QUEtiapine FUMARATE 25 MG TAB PO SCH ×2 (09:02→21:00)
[2017-01-28] MEDS: CHOLECALCIFEROL (VIT D3) 1000 UNIT TAB PO SCH (09:02)
[2017-01-28] MEDS: VENLAFAXINE HCL XR 75 MG CAP PO SCH (09:03)
[2017-01-28] MEDS: POTASSIUM CHLORIDE 10 MEQ CONTROLLED RELEASE TAB PO SCH (09:03)
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
--- NOTE | 2017-01-28 10:01 | HHI.PYPN ---
Subjective Remarks Patient was seen today for psychiatric evaluation, patient was found having his breakfast, calm, cooperative, pleasantly confused, he reports good mood, denies depression, he denies anxiety, reports good appetite, good energy. He denies suicidal or homicidal ideation. He denies visual and auditory hallucinations. Oriented in person, disoriented in time and place. No agitation or aggressive behavior reports Review of Systems Other No somatic complaints Objective Alert: Yes [place]: Person Mood: Calm Affect: Blunted (remains blunted tending towards flat) Memory Intact: Comment (impaired) Hallucinations: Other (no AVH) Delusions: No Delusion Type: Other (no delusions) Suicidal: Ideation (no SI voiced) Homicidal: Ideation (no HI voiced) Insight/Judgment poor Labs Test 01/27/17 01/28/17 17:21 07:04 Prothrombin Time 42.2 SEC 37.4 SEC Prothromb Time International 3.6 RATIO 3.2 RATIO Ratio Vitals/IOs Vital Signs Date Time Temp Pulse Resp B/P Pulse Ox O2 Delivery O2 Flow Rate FiO2 01/28/17 05:46 98.1 71 16 136/66 99 Intake and Output 01/27/17 01/27/17 01/28/17 08:00 16:00 00:00 Intake Total 240 ml 240 ml 860 ml Balance 240 ml 240 ml 860 ml Assessment & Plan Problem List: (1) Dementia ICD Code: F03.90 Assessment & Plan Estimated LOS: days Justification for Cont. Inpt. Patient is to continue psychiatric hospitalization for monitoring of mood and behavior and in order to coordinate a safe discharge Request HC Surrog/Guard Advoc?: Yes Problem Qualifiers (1) Dementia: Qualified Code: G30.8 - Alzheimer's disease of other onset without behavioral disturbance Jaxon Schrader MD January 28, 2017 10:01
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
[2017-01-28] MEDS ORDERED: VENL75XR PO (13:27)
[2017-01-28] MEDS ORDERED: CLON.1 PO (13:27)
[2017-01-28] MEDS ORDERED: ARIC5TAB PO (13:27)
[2017-01-28] MEDS ORDERED: QUET1TAB7 PO (13:27)
[2017-01-28 16:00] VITALS: BP 147/67; PULSE 70; RESP 20; TEMP 98
[2017-01-28 19:30] VITALS: BP 139/67; PULSE 70; RESP 16; TEMP 98; O2SAT 99
[2017-01-28] MEDS: DONEPEZIL HCL 5 MG TAB PO SCH (21:00)
[2017-01-28] MEDS: SENNOSIDES 8.6 MG TAB PO SCH (21:00)
[2017-01-29 06:38] VITALS: BP 146/72; PULSE 73; RESP 16; TEMP 97.6; O2SAT 98
[2017-01-29] MEDS: NICOTINE 21 MG/24 HR PATCH T-DERMAL SCH (09:00)
[2017-01-29] MEDS: ARTIFICIAL TEARS OPTH SOLN 15 ML BTL EACH EYE SCH (09:00)
[2017-01-29] MEDS: FERROUS SULFATE 325 MG (65 MG ELEMENTAL IRON) TAB PO SCH (09:00)
[2017-01-29] MEDS: REMOVE OLD PATCH-NICOTINE T-DERMAL SCH (09:00)
[2017-01-29 09:06] LABS: INTERNATIONAL NORMALIZED RATIO 2.3 RATIO; PROTHROMBIN TIME - PATIENT 26.5 SEC (9.8-11.6)
[2017-01-29] MEDS: VENLAFAXINE HCL XR 75 MG CAP PO SCH (09:41)
[2017-01-29] MEDS: CHOLECALCIFEROL (VIT D3) 1000 UNIT TAB PO SCH (09:41)
[2017-01-29] MEDS: QUEtiapine FUMARATE 25 MG TAB PO SCH (09:41)
[2017-01-29] MEDS: POTASSIUM CHLORIDE 10 MEQ CONTROLLED RELEASE TAB PO SCH (09:41)
[2017-01-29] MEDS ORDERED: WARFARIN SOD 1 MG TAB PO SCH (16:00)
== END 2017-01-29 10:10 | DRG 884 ==
LOC: NEPC 19:17 → NEDA 23:03 → H250 01-20 00:20 → H4EA 01-23 13:35
PROVIDERS: ADMIT Psychiatry & Neurology Psychiatry; ATTEND Psychiatry & Neurology Psychiatry
DX: F01.51 Vascular dementia, unspecified severity, with behavioral disturbance (principal); N17.9 Acute kidney failure, unspecified; I11.0 Hypertensive heart disease with heart failure; I50.9 Heart failure, unspecified; E87.1 Hypo-osmolality and hyponatremia; R56.9 Unspecified convulsions; G30.9 Alzheimer's disease, unspecified; F02.80 Dementia in other diseases classified elsewhere, unspecified severity, without behavioral disturbance, psychotic disturbance, mood disturbance, and anxiety; E55.9 Vitamin D deficiency, unspecified; I48.2 Chronic atrial fibrillation; R47.02 Dysphasia; Z79.01 Long term (current) use of anticoagulants; Z85.46 Personal history of malignant neoplasm of prostate; Z86.73 Personal history of transient ischemic attack (TIA), and cerebral infarction without residual deficits; Z95.810 Presence of automatic (implantable) cardiac defibrillator; I25.10 Atherosclerotic heart disease of native coronary artery without angina pectoris
CPT/HCPCS: 70450; 71010; 78070; 78803; 78999; 80048; 80053; 80061; 80307; 82306; 82397; 83036; 83970; 84155; 84443; 85025; 85027; 85610; 85730; 93005; A9500; A9512; J7030